=== PATIENT | male | born 1950 | race Caucasian/White ===

== ENCOUNTER 2016-09-25 12:22 | Emergency (ER) | payer OTHER ==
[~2016-09-25] VITALS: Ht 170.2 cm; Wt 76.0 kg
[2016-09-25 12:23] VITALS: TEMP 36.6; Ht 170.2 cm; Wt 76.0 kg
[2016-09-25] MEDS ORDERED: PRED20TA PO (13:16)
[2016-09-25] MEDS ORDERED: CARI350T28 PO (13:16)
[2016-09-25 13:35] VITALS: BP 101/58; PULSE 93; O2SAT 98
--- NOTE | 2016-09-25 13:35 | EMERGENCY ROOM VISIT NOTE ---
ED Visit Note First contact with patient: 12:50 I have personally seen and evaluated the patient with the physician senior it assistant. I agree with the diagnostic/management decisions and have personally been involved in these decisions and agree with the diagnosis.
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
== END 2016-09-25 13:53 | disposition home or self-care (01) ==
LOC: C.EDB 12:22 → C.EDD 13:53
DX: M54.16 Radiculopathy, lumbar region (principal); E66.9 Obesity, unspecified